=== PATIENT | female | born 1960 | race Caucasian/White ===

== ENCOUNTER → 2017-04-23 | Outpatient (CLI) | payer BC ==
[~2017-04-23] MED LIST: IBUP-1022 PO
--- NOTE | 2017-04-23 14:04 | REP ---
FOOT SERIES: Four views. HISTORY: Pain in the left foot. No injury or trauma known. FINDINGS: Four views of the left foot show overall normal mineralization. Joint spaces are preserved. No erosive change is seen. No fracture is noted. No stress injury is appreciated. IMPRESSION: Negative radiographs of the left foot. Signed by Davon Bello MD 04/23/2017 02:07 P
== END ==
LOC: M ADAMS 13:19
PROVIDERS: ATTEND Physician Assistant
DX: M79.672 Pain in left foot (principal)

== ENCOUNTER → 2017-09-10 | Outpatient (REF) | payer BC ==
[2017-09-10 13:17] LABS: BASO % 0.5 % (0.0-1.0); EOS # 0.1 10^3/uL (0.0-0.50); EOS % 1.5 % (0.0-3.0); IMMATURE GRANULOCYTE % 0.4 % (0-0); LYMPH # 1.5 10^3/uL (1.5-4.5); LYMPH % 27.9 % (24.0-44.0); MEAN CORPUSCULAR HEMOGLOBIN 33.2 pg (27.0-33.0); MEAN CORPUSCULAR HGB CONC 33.1 g/dl (32.0-36.5); MEAN CORPUSCULAR VOLUME 100.5 fl (80.0-96.0); MONO # 0.4 10^3/uL (0.0-0.8); MONO % 6.9 % (0.0-5.0); NEUTROPHILS # 3.5 10^3/uL (1.8-7.7); NEUTROPHILS % 62.8 % (36.0-66.0); PLATELET COUNT, AUTOMATED 144 10^3/uL (150-450); RED CELL DISTRIBUTION WIDTH 11.6 % (11.5-14.5); WHITE BLOOD COUNT 5.5 10^3/uL (4.0-10.0)
[2017-09-10 13:39] LABS: ALBUMIN 3.9 GM/DL (3.2-5.2); ALBUMIN/GLOBULIN RATIO 1.22 (1.00-1.93); ALKALINE PHOSPHATASE 60 U/L (45-117); ALT/SGPT 22 U/L (12-78); ANION GAP 6 MEQ/L (8-16); AST/SGOT 13 U/L (7-37); BILIRUBIN,TOTAL 0.6 MG/DL (0.2-1.0); BLOOD UREA NITROGEN 10 MG/DL (7-18); CALCIUM LEVEL 8.8 MG/DL (8.5-10.1); CARBON DIOXIDE LEVEL 32 MEQ/L (21-32); CHLORIDE LEVEL 102 MEQ/L (98-107); CREATININE FOR GFR 0.58 MG/DL (0.55-1.02); GLOMERULAR FILTRATION RATE > 60.0 (>51); GLUCOSE, FASTING 93 MG/DL (70-105); SODIUM LEVEL 140 MEQ/L (136-145); TOTAL PROTEIN 7.1 GM/DL (6.4-8.2)
== END ==
LOC: M LAB REF 12:04
PROVIDERS: ATTEND Physician Assistant
DX: R11.10 Vomiting, unspecified (principal)

== ENCOUNTER → 2019-03-15 | Outpatient (CLI) | payer BC ==
--- NOTE | 2019-03-16 06:49 | REP ---
Clinical: Cough . Comparison: None . Technique: PA and lateral. Findings: Severe chronic scoliosis appreciated along with osteopenia and degenerative changes. The lung donnelly suggest COPD/emphysematous disease with scattered scarring. No focal consolidation, definite effusion or pneumothorax. Impression: 1. COPD. No acute cardiopulmonary process. 2. Scoliosis and degenerative changes. Electronically Signed by Bradley Mary MD 03/16/2019 06:41 A
== END ==
LOC: M ADAMS 10:03
PROVIDERS: ATTEND Physician Assistant
DX: J44.9 Chronic obstructive pulmonary disease, unspecified (principal); M41.9 Scoliosis, unspecified; M85.88 Other specified disorders of bone density and structure, other site

== ENCOUNTER → 2020-01-02 | Outpatient (CLI) | payer BC ==
--- NOTE | 2020-01-02 14:57 | REP ---
Clinical: Acute bronchitis. Technique: PA and lateral. Comparison: 03/15/2019. Findings: Marked chronic scoliosis is unchanged. The cardiac silhouette is normal. Lung donnelly are clear. No consolidation, effusion, or pneumothorax. Impression: No acute consolidation or effusion. Electronically Signed by Bradley Mary MD 01/02/2020 02:49 P
== END ==
LOC: M ADAMS 14:23
PROVIDERS: ATTEND Physician Assistant
DX: J20.9 Acute bronchitis, unspecified (principal); Z72.0 Tobacco use; J45.901 Unspecified asthma with (acute) exacerbation

== ENCOUNTER → 2020-01-08 | Outpatient (CLI) | payer BC | LOC: M LABSMTC 10:30 | PROVIDERS: ATTEND Family Medicine | DX: Z11.59 Encounter for screening for other viral diseases (principal); Z20.828 Contact with and (suspected) exposure to other viral communicable diseases | CPT/HCPCS: 87502; U0002 ==

== ENCOUNTER → 2020-09-01 | Outpatient (CLI) | payer SELFPAY | LOC: M LABSMTC 11:46 | PROVIDERS: ATTEND Pediatrics | DX: Z20.828 Contact with and (suspected) exposure to other viral communicable diseases (principal) ==

== ENCOUNTER → 2020-12-14 | Outpatient (REF) | payer BC ==
[2020-12-14 12:55] LABS: BASO % 0.5 % (0.0-1.0); EOS % 0.8 % (0.0-3.0); HEMATOCRIT 42.5 % (36.0-47.0); HEMOGLOBIN 13.9 g/dl (12.0-15.5); MEAN CORPUSCULAR HEMOGLOBIN 33.1 pg (27.0-33.0); MEAN CORPUSCULAR HGB CONC 32.7 g/dl (32.0-36.5); MEAN CORPUSCULAR VOLUME 101.2 fl (80.0-96.0); MONO # 0.3 10^3/uL (0.0-0.8); MONO % 7.8 % (2.0-8.0); NEUTROPHILS # 2.4 10^3/uL (1.5-8.5); NEUTROPHILS % 63.6 % (36.0-66.0); PLATELET COUNT, AUTOMATED 120 10^3/uL (150-450); WHITE BLOOD COUNT 3.7 10^3/uL (4.0-10.0)
[2020-12-14 14:48] LABS: ALBUMIN 3.9 GM/DL (3.2-5.2); ALT/SGPT 16 U/L (12-78); BILIRUBIN,TOTAL 0.5 MG/DL (0.2-1.0); BLOOD UREA NITROGEN 11 MG/DL (7-18); CARBON DIOXIDE LEVEL 32 MEQ/L (21-32); CHLORIDE LEVEL 106 MEQ/L (98-107); CHOLESTEROL LEVEL 149 MG/DL (<200); CHOLESTEROL RISK RATIO 2.098 (<5); CREATININE FOR GFR 0.57 MG/DL (0.55-1.30); GLOMERULAR FILTRATION RATE > 60.0 (>51); GLUCOSE, FASTING 76 MG/DL (70-100); HDL CHOLESTEROL 71 MG/DL (>40); LDL CHOLESTEROL 65 MG/DL (<100); NON-HDL-C 78 MG/DL; POTASSIUM SERUM 4.2 MEQ/L (3.5-5.1); SODIUM LEVEL 140 MEQ/L (136-145); TOTAL PROTEIN 6.9 GM/DL (6.4-8.2); TRIGLYCERIDES LEVEL 65 MG/DL (<150)
== END ==
LOC: M SFHCADAM 11:04
PROVIDERS: ATTEND Physician Assistant Medical
DX: F17.210 Nicotine dependence, cigarettes, uncomplicated (principal); Z13.220 Encounter for screening for lipoid disorders; Z13.0 Encounter for screening for diseases of the blood and blood-forming organs and certain disorders involving the immune mechanism

== ENCOUNTER → 2020-12-22 | Outpatient (CLI) | payer BC ==
--- NOTE | 2020-12-22 12:43 | REP ---
INDICATION: PAIN IN RIGHT KNEE COMPARISON: None. TECHNIQUE: AP, lateral, bilateral oblique and sunrise views. FINDINGS: Mild generalized osteopenia and mild degenerative changes including subchondral sclerosis and minimal joint space narrowing noted. No acute fracture or dislocation. No obvious effusion. IMPRESSION: Mild degenerative changes. <Electronically signed by Bradley Mary > 12/22/20 [id number]
== END ==
LOC: M ADAMS 11:51
PROVIDERS: ATTEND Physician Assistant Medical
DX: M25.561 Pain in right knee (principal)

== ENCOUNTER → 2020-12-22 | Outpatient (REF) | payer BC ==
[2020-12-22 16:19] LABS: HEMATOCRIT 41.7 % (36.0-47.0); HEMOGLOBIN 13.6 g/dl (12.0-15.5); MEAN CORPUSCULAR HEMOGLOBIN 33.8 pg (27.0-33.0); MEAN CORPUSCULAR HGB CONC 32.6 g/dl (32.0-36.5); MEAN CORPUSCULAR VOLUME 103.7 fl (80.0-96.0); PLATELET COUNT, AUTOMATED 113 10^3/uL (150-450); RED BLOOD COUNT 4.02 10^6/uL (4.00-5.40); WHITE BLOOD COUNT 4.7 10^3/uL (4.0-10.0)
[2020-12-22 16:47] LABS: ERYTHROCYTE SEDIMENTATION RATE 11 mm/hr (0-30)
[2020-12-22 16:52] LABS: C REACTIVE PROTEIN QUANTITATIV 1.02 MG/DL (0.00-0.30)
[2020-12-25 18:12] LABS: Lyme Disease IgG/IgM Antibodie <0.91 ISR (0.00-0.90); Lyme Disease IgM Ab Quantitati <0.80 index (0.00-0.79)
== END ==
LOC: M SFHCADAM 11:50
PROVIDERS: ATTEND Physician Assistant Medical
DX: M25.561 Pain in right knee (principal)

== ENCOUNTER → 2020-12-27 | Outpatient (CLI) | payer BC ==
--- NOTE | 2020-12-27 08:34 | PFTRPT ---
Site: [facility], [address] [place] [address], [id number] ID: [id number] Name: KATTY MIRANDA Visit Date: 12/27/2020 Second ID: [id number] Referring Doctor: Marybel Sweeney PA-C Reviewing Doctor: German Tijerina MD Physical Metallurgist: Andrea PINO RRT Age: 60 : 1960 Sex: Female Race: Height: 62.50 Inches Weight: 96.00 Lbs BSA: 1.41 Order IDs: [id number] Requested Test(s): <RESP-PFT.PFT B/A> Diagnosis: J44.9 test meet the ATS standards for acceptability and repeatability. Pt was given four puffs of albuterol for post bronchodilator. Review Status: Not Reviewed Pre-Bronch Post-Bronch Pred Actual %Pred Actual %Chng SPIROMETRY FVC (L) 3.18 1.48 46 1.63 9 FEV1 (L) 2.47 0.74 29 0.83 13 FEV1/FVC (%) 78 50 63 51 3 FEF 25% (L/sec) 4.87 0.78 15 0.91 17 FEF 50% (L/sec) 3.69 0.35 9 0.45 27 FEF 75% (L/sec) 1.26 0.16 12 0.21 34 FEF 25-75% (L/sec) 2.35 0.30 12 0.39 29 FEF Max (L/sec) 6.17 1.58 25 2.12 34 FIVC (L) 1.52 1.67 10 FIF 50% (L/sec) 3.13 1.99 63 2.58 29 FIF Max (L/sec) 2.13 2.59 21 MVV (L/min) 90 22 24 Expiratory Time (sec) 8.55 7.63 -10 Back Extrap Vol (L) 0.02 0.02 -8 Time To FEFmax (sec) 0.072 0.070 -2 LUNG VOLUMES SVC (L) 2.96 1.58 53 IC (L) 2.12 1.04 49 ERV (L) 0.84 0.54 64 TGV (L) 2.71 3.98 146 RV (Pleth) (L) 1.87 3.44 183 TLC (Pleth) (L) 4.83 5.02 103 RV/TLC (Pleth) (%) 38 69 180 DIFFUSION DLCOunc (ml/min/mmHg) 21.24 7.87 37 DL/VA (ml/min/mmHg/L) 4.40 2.67 60 VA (L) 4.83 2.94 60 BHT (sec) 10.64 IVC (L) 1.02 TLC (SB) (L) 3.09 AIRWAYS RESISTANCE Raw (cmH2O/L/s) 1.86 2.25 121 Gaw (L/s/cmH2O) 1.03 0.45 43 sRaw (cmH2O*s) 4.76 8.32 174 sGaw (1/cmH2O*s) 0.20 0.12 60
== END ==
LOC: M CARPUL 08:05
PROVIDERS: ATTEND Physician Assistant Medical
DX: J44.9 Chronic obstructive pulmonary disease, unspecified (principal)

== ENCOUNTER → 2021-01-12 | Outpatient (CLI) | payer BC ==
--- NOTE | 2021-01-12 16:38 | REP ---
INDICATION: Claudication. COMPARISON: None. TECHNIQUE: Real time jordan scale and Duplex Doppler evaluation of the bilateral lower extremity arterial vasculature using linear high frequency transducer. FINDINGS: Jordan scale and duplex doppler images demonstrate mild amounts of atheromatous plaquing. There is elevated velocity of the right profunda artery, but there is no visual stenosis, therefore the velocity is likely falsely elevated. There is no compelling duplex Doppler sonographic evidence of significant stenosis of the bilateral arterial structures. There is no occlusion. Doppler interrogation demonstrates normal arterial wave forms bilaterally. PREETHI right 1.0 and left 1.1. Peak systolic velocities (cm/sec) Common femoral artery: Right 102; Left 96 Profunda femoris: Right 325; Left 97 SFA (proximal): Right 143; Left 111 SFA (mid): Right 138; Left 162 SFA (distal): Right 109; Left 144 Popliteal artery: Right 81; Left 72 ISAIAH (prox.): Right 62; Left 76 Tibioperoneal trunk: Right 48; Left 43 DATA COLLECTION TECHNICIAN (prox.): Right 37; Left 53 DATA COLLECTION TECHNICIAN (distal): Right 55; Left 43 ISAIAH (distal): Right 68; Left 45 IMPRESSION: Atheromatous changes but no focal occlusion or stenosis. Elevated flow velocity in the right profunda artery is likely artifactual. <Electronically signed by Guzman Jordan > 01/12/21 [id number]
== END ==
LOC: M RAD 14:39
PROVIDERS: ATTEND Physician Assistant
DX: I70.91 Generalized atherosclerosis (principal)

== ENCOUNTER → 2021-02-02 | Outpatient (CLI) | payer BC ==
--- NOTE | 2021-02-02 10:06 | DEXAMM ---
INDICATION: M41.25 IDIOPATHIC SCOLIOSIS. COMPARISON: None. TECHNIQUE: Bone density was measured using dual-energy x-ray absorptionmetry (DEXA). FINDINGS: AP SPINE L1-L4 BMD 0.622 g/cm2 Young Adult T-Score -4.6 Age Matched Z-Score is -3.6. LT FEMUR, TOTAL BMD 0.57 to g/cm2 Young Adult T-Score -3.5 Age Matched Z-Score -2.6. LT NECK BMD 0.598 g/cm2 Young Adult T-Score -3.2 Age Matched Z-Score 2-2.0. RT FEMUR, TOTAL BMD 0.535 g/cm2 Young Adult T-Score -3.7 Age Matched Z-Score -2.9. RT NECK BMD 0.580 g/cm2 Young Adult T-Score -3.3 Age Matched Z-Score -2.2. IMPRESSION: There is osteoporosis of the spine. There is osteoporosis of the left hip. There is osteoporosis of the right hip. There is a levoconvex scoliosis in the lumbar spine. FOLLOW-UP: Recommendation for the next bone density exam: 2 years. <Electronically signed by Henri Bello > 02/02/21 1002
== END ==
LOC: M WHC 09:01
PROVIDERS: ATTEND Physician Assistant Medical
DX: M41.25 Other idiopathic scoliosis, thoracolumbar region (principal); M81.0 Age-related osteoporosis without current pathological fracture

== ENCOUNTER → 2021-08-01 | Outpatient (CLI) | payer OTHER ==
--- NOTE | 2021-08-01 10:48 | REPMRS ---
Patient History The patient states she had a clinical breast exam in July 2021. Patient is postmenopausal. Family history of breast cancer at age 50 or over in maternal aunt, breast cancer at age 50 or over in maternal grandmother, breast cancer at age 50 or over in mother, colorectal cancer under age 50 in maternal grandfather. Took hormonal contraceptives for 20 years. Patient states no breast complaints today. Patient has signed MRS History Sheet. Digital Woman Screen Mammo: August 01, 2021 - Exam #: [id number] Bilateral CC and MLO view(s) were taken. Technologist: Tiffanie Jha, Technologist FINDINGS: The breast tissue is extremely dense which could obscure a lesion on mammography. Screening. Digital screening (2D) mammography was performed bilaterally. Additionally, breast tomosynthesis (3D) mammography was perfomed bilaterally in the CC and MLO projections. Today's examination is the initial screening examination. By history, the patient has no complaints of a palpable breast abnormality or other significant breast complaints. The breasts are symmetric in size and shape.Dense heterogenous fibroglandular elements are seen bilaterally to such a degree that the sensitivity of the mammogram in detecting cancer is decreased. There are no masses. There is no internal architectural distortion. Benign appearing calcifications are seen. There are no suspicious microcalcific clusters. Skin thickening or nipple retraction is not present. IMPRESSION: BI-RADS Category 2- Benign Findings. There is no evidence of malignant alteration of the breasts. Followup examination recommended in one year. The Volpara volumetric breast density category is D, the breasts are extremely dense which lowers the sensitivity of mammography. This mammogram was read with the assistance of [employer],an FDA approved computer aided detection system for mammography. The lifetime Tyrer-Cuzick score is 13.4 % Due to the density of the breasts or Tyrer Cuzick score of 20% or greater, MRI/whole breast screening ultrasound is warranted. Negative x-ray reports should not delay surgical consultation if a dominant or clinically suspicious mass is present. Not all breast cancers can be identified by mammography. Therefore, we recommend that you continue to perform regular breast self-examination and physical examination and then promptly contact your physician of any concerns or changes. Adenosis and dense breasts may obscure an underlying neoplasm. Assessment: BI-RADS/ACR category 2 mammogram. Benign Findings. Recommendation Routine screening mammogram of both breasts in 1 year. Electronically Signed By: Justin Ornelas DO 08/01/21 0381
== END ==
LOC: M WHC 09:35
PROVIDERS: ATTEND Physician Assistant Medical
DX: Z12.31 Encounter for screening mammogram for malignant neoplasm of breast (principal)

== ENCOUNTER → 2021-08-09 | Outpatient (REF) | payer BC, MEDICAID | LOC: M SFHCADAM 15:17 | PROVIDERS: ATTEND Physician Assistant Medical | DX: R05.9 Cough, unspecified (principal) ==

== ENCOUNTER → 2021-09-05 | Outpatient (REF) | payer MEDICAID, BC | LOC: M SFHCADAM 13:11 | PROVIDERS: ATTEND Physician Assistant | DX: R09.81 Nasal congestion (principal) ==

== ENCOUNTER → 2021-09-20 | Outpatient (REF) | payer OTHER | LOC: M SFHCADAM 11:37 | PROVIDERS: ATTEND Physician Assistant Medical | DX: E55.9 Vitamin D deficiency, unspecified (principal) ==

== ENCOUNTER → 2022-02-13 | Outpatient (CLI) | payer OTHER ==
[~2022-02-13] MED LIST changes: +ALEN70TA82 PO; +BREO1INH INH; +CHLO125TA PO; +MELO15TA28 PO; +VITA200016 PO
== END ==
LOC: M LABSMTC 09:16
PROVIDERS: ATTEND Anesthesiology
DX: Z01.812 Encounter for preprocedural laboratory examination (principal); Z20.822 Contact with and (suspected) exposure to COVID-19

== ENCOUNTER → 2022-05-19 | Outpatient (CLI) | payer OTHER | LOC: M LABSMTC 09:34 | PROVIDERS: ATTEND Anesthesiology | DX: Z20.828 Contact with and (suspected) exposure to other viral communicable diseases (principal); Z11.59 Encounter for screening for other viral diseases ==

== ENCOUNTER 2022-05-22 06:48 | Day surgery (SDC) | payer OTHER ==
[~2022-05-22] VITALS: Ht 160 cm; Wt 42.8 kg
[~2022-05-22 06:48] MED LIST changes: +LIDOCAINE 2% 100MG/5ML SDV (FOR ANES.) As Ordered ONE; +NS 1,000 ML IV ONE; +propofoL 200 MG/20 ML VIAL As Ordered ONE
[2022-05-22 08:16] VITALS: BP 116/69
== END 2022-05-22 08:22 | disposition home or self-care (01) ==
LOC: M OPP 06:48
PROVIDERS: ATTEND Internal Medicine Gastroenterology
DX: R19.5 Other fecal abnormalities (principal); K63.5 Polyp of colon; K64.0 First degree hemorrhoids; K57.30 Diverticulosis of large intestine without perforation or abscess without bleeding; I10 Essential (primary) hypertension; M41.9 Scoliosis, unspecified; M19.90 Unspecified osteoarthritis, unspecified site; M81.0 Age-related osteoporosis without current pathological fracture; F32.A Depression, unspecified; J44.9 Chronic obstructive pulmonary disease, unspecified; F17.210 Nicotine dependence, cigarettes, uncomplicated; Z79.51 Long term (current) use of inhaled steroids; Z79.899 Other long term (current) drug therapy

== ENCOUNTER → 2022-08-06 | Outpatient (CLI) | payer OTHER ==
[~2022-08-06] MED LIST changes: -LIDOCAINE 2% 100MG/5ML SDV (FOR ANES.) As Ordered ONE; -NS 1,000 ML IV ONE; -propofoL 200 MG/20 ML VIAL As Ordered ONE
[2022-08-06 10:50] LABS: BASO # 0.1 10^3/uL (0.0-0.2); BASO % 0.8 % (0.0-1.0); EOS # 0.1 10^3/uL (0.0-0.5); HEMATOCRIT 43.6 % (36.0-47.0); HEMOGLOBIN 14.4 g/dl (12.0-15.5); LYMPH # 1.6 10^3/uL (1.5-5.0); LYMPH % 25.1 % (24.0-44.0); MEAN CORPUSCULAR HEMOGLOBIN 32.1 pg (27.0-33.0); MEAN CORPUSCULAR VOLUME 97.1 fl (80.0-96.0); MONO # 0.5 10^3/uL (0.0-0.8); MONO % 7.2 % (2.0-8.0); NEUTROPHILS # 4.1 10^3/uL (1.5-8.5); NEUTROPHILS % 65.6 % (36.0-66.0); PLATELET COUNT, AUTOMATED 176 10^3/uL (150-450); RED BLOOD COUNT 4.49 10^6/uL (4.00-5.40); WHITE BLOOD COUNT 6.2 10^3/uL (4.0-10.0)
[2022-08-06 11:54] LABS: ALBUMIN 4.1 GM/DL (3.2-5.2); ALT/SGPT 16 U/L (12-78); BILIRUBIN,TOTAL 0.7 MG/DL (0.2-1.0); BLOOD UREA NITROGEN 20 MG/DL (7-18); CALCIUM LEVEL 9.5 MG/DL (8.5-10.1); CARBON DIOXIDE LEVEL 38 MEQ/L (21-32); CHLORIDE LEVEL 95 MEQ/L (98-107); CHOLESTEROL LEVEL 202 MG/DL (<200); CREATININE FOR GFR 0.61 MG/DL (0.55-1.30); GLOMERULAR FILTRATION RATE > 60.0 (>51); GLUCOSE, FASTING 115 MG/DL (70-100); HDL CHOLESTEROL 68 MG/DL (>40); LDL CHOLESTEROL 116 MG/DL (<100); NON-HDL-C 134 MG/DL; SODIUM LEVEL 138 MEQ/L (136-145); TOTAL PROTEIN 7.6 GM/DL (6.4-8.2); TRIGLYCERIDES LEVEL 89 MG/DL (<150)
[2022-08-06 13:06] LABS: POTASSIUM SERUM 2.9 MEQ/L (3.5-5.1); TOTAL 25(OH) VITAMIN D 54.6 NG/ML (30.0-100.0)
== END ==
LOC: M PLALAB 08:15
PROVIDERS: ATTEND Physician Assistant Medical
DX: E55.9 Vitamin D deficiency, unspecified (principal); I10 Essential (primary) hypertension; J43.1 Panlobular emphysema

== ENCOUNTER → 2022-08-06 | Outpatient (CLI) | payer OTHER | LOC: M WHC 07:33 | PROVIDERS: ATTEND Physician Assistant Medical | DX: Z12.31 Encounter for screening mammogram for malignant neoplasm of breast (principal) ==

== ENCOUNTER → 2022-08-12 | Outpatient (CLI) | payer OTHER ==
[2022-08-12 11:25] LABS: BLOOD UREA NITROGEN 14 MG/DL (7-18); CALCIUM LEVEL 9.3 MG/DL (8.5-10.1); CARBON DIOXIDE LEVEL 34 MEQ/L (21-32); CHLORIDE LEVEL 98 MEQ/L (98-107); CREATININE FOR GFR 0.64 MG/DL (0.55-1.30); GLOMERULAR FILTRATION RATE > 60.0 (>51); GLUCOSE, FASTING 122 MG/DL (70-100); POTASSIUM SERUM 3.5 MEQ/L (3.5-5.1); SODIUM LEVEL 136 MEQ/L (136-145)
== END ==
LOC: M PLALAB 08:01
PROVIDERS: ATTEND Physician Assistant Medical
DX: E87.6 Hypokalemia (principal)

== ENCOUNTER → 2023-01-14 | Outpatient (CLI) | payer OTHER ==
[2023-01-14 12:11] LABS: ALKALINE PHOSPHATASE 51 U/L (46-116); ALT/SGPT < 9 U/L (7.0-40); AST/SGOT 15 U/L (<34); BILIRUBIN,TOTAL 0.6 MG/DL (0.3-1.2); BLOOD UREA NITROGEN 22 MG/DL (9-23); CALCIUM LEVEL 9.5 MG/DL (8.3-10.6); CARBON DIOXIDE LEVEL 36 MMOL/L (20-31); CHLORIDE LEVEL 95 MMOL/L (98-107); CHOLESTEROL LEVEL 185 MG/DL (<200); CHOLESTEROL RISK RATIO 2.83 (<5); GLOMERULAR FILTRATION RATE > 60.0 (>45); GLUCOSE, FASTING 91 MG/DL (74-106); HDL CHOLESTEROL 65.2 MG/DL (>40); LDL CHOLESTEROL 103.4 MG/DL (<100); NON-HDL-C 119.8 MG/DL; SODIUM LEVEL 137 MMOL/L (136-145); TOTAL PROTEIN 6.9 G/DL (5.7-8.2); TRIGLYCERIDES LEVEL 82 MG/DL (<150)
[2023-01-14 12:13] LABS: THYROID STIMULATING HORMONE 2.167 uIU/ML (0.55-4.78); TOTAL 25(OH) VITAMIN D 53.3 NG/ML (20.0-100.0)
[2023-01-14 12:49] LABS: HEMOGLOBIN A1c 5.4 % (4.0-6.0)
== END ==
LOC: M PLALAB 09:05
PROVIDERS: ATTEND Physician Assistant Medical
DX: I10 Essential (primary) hypertension (principal)

== ENCOUNTER → 2023-01-14 | Outpatient (CLI) | payer OTHER | LOC: M WHC 08:34 | PROVIDERS: ATTEND Physician Assistant Medical | DX: M81.0 Age-related osteoporosis without current pathological fracture (principal) ==

== ENCOUNTER → 2023-02-20 | Outpatient (REF) | payer OTHER | LOC: M SFHCADAM 12:33 | PROVIDERS: ATTEND Physician Assistant Medical | DX: Z12.4 Encounter for screening for malignant neoplasm of cervix (principal); R87.610 Atypical squamous cells of undetermined significance on cytologic smear of cervix (ASC-US) ==

== ENCOUNTER → 2023-05-09 | Outpatient (CLI) | payer OTHER | LOC: M ADAMS 10:06 | PROVIDERS: ATTEND Physician Assistant | DX: F17.210 Nicotine dependence, cigarettes, uncomplicated (principal); M41.9 Scoliosis, unspecified ==

== ENCOUNTER → 2023-05-21 | Outpatient (CLI) | payer OTHER | LOC: M RAD 15:50 | PROVIDERS: ATTEND Physician Assistant | DX: F17.210 Nicotine dependence, cigarettes, uncomplicated (principal); R22.31 Localized swelling, mass and lump, right upper limb ==

== ENCOUNTER → 2023-06-03 | Outpatient (CLI) | payer OTHER | LOC: M WHC 10:07 | PROVIDERS: ATTEND Physician Assistant | DX: F17.210 Nicotine dependence, cigarettes, uncomplicated (principal); R22.31 Localized swelling, mass and lump, right upper limb ==

== ENCOUNTER 2023-11-21 15:29 | Inpatient (IN) | payer OTHER ==
[~2023-11-21] VITALS: Ht 160 cm; Wt 41.1 kg
[2023-11-21] MEDS: NS 500 ML IV ONE (16:10)
[2023-11-21 16:59] LABS: BASO % 0.1 % (0.0-1.0); EOS % 0.1 % (0.0-3.0); HEMATOCRIT 40.1 % (36.0-47.0); HEMOGLOBIN 13.9 g/dl (12.0-15.5); LYMPH # 0.6 10^3/uL (1.5-5.0); LYMPH % 4.1 % (24.0-44.0); MEAN CORPUSCULAR HEMOGLOBIN 34.3 pg (27.0-33.0); MEAN CORPUSCULAR HGB CONC 34.7 g/dl (32.0-36.5); MONO # 0.6 10^3/uL (0.0-0.8); MONO % 4.5 % (2.0-8.0); NEUTROPHILS # 12.6 10^3/uL (1.5-8.5); NEUTROPHILS % 90.7 % (36.0-66.0); PLATELET COUNT, AUTOMATED 108 10^3/uL (150-450); RED BLOOD COUNT 4.05 10^6/uL (4.00-5.40); WHITE BLOOD COUNT 13.9 10^3/uL (4.0-10.0)
[2023-11-21 17:10] LABS: ALBUMIN 3.5 G/DL (3.2-5.2); ALKALINE PHOSPHATASE 45 U/L (46-116); ALT/SGPT 12 U/L (7.0-40); AST/SGOT 18 U/L (<34); BILIRUBIN,DIRECT 0.3 MG/DL (<0.4); BILIRUBIN,TOTAL 0.7 MG/DL (0.3-1.2); BLOOD UREA NITROGEN 30 MG/DL (9-23); CALCIUM LEVEL 8.4 MG/DL (8.3-10.6); CARBON DIOXIDE LEVEL 30 MMOL/L (20-31); CHLORIDE LEVEL 96 MMOL/L (98-107); CREATININE FOR GFR 0.82 MG/DL (0.55-1.30); GLOMERULAR FILTRATION RATE > 60.0 (>45); GLUCOSE, FASTING 93 MG/DL (74-106); MAGNESIUM LEVEL 1.6 MG/DL (1.8-2.4); POTASSIUM SERUM 3.2 MMOL/L (3.5-5.1); SODIUM LEVEL 133 MMOL/L (136-145); TOTAL PROTEIN 6.6 G/DL (5.7-8.2)
[2023-11-21 17:18] LABS: RSV AMPLIFICATION NEGATIVE (NEGATIVE)
[2023-11-21] MEDS ORDERED: MOM 30ML SUSPENSION UDC PO PRN (18:20)
[2023-11-21] MEDS: ACETAMINOPHEN TAB 650MG DOSE (2X325MG) PO PRN (18:55)
[2023-11-21] MEDS: MAG SULF 1GM/100ML (MAG RUN) 1 GM in IV 1 EA IV ONE (18:55)
[2023-11-21] MEDS: POTASSIUM CHLORIDE 10MEQ SR TABLET PO ONE (18:55)
[2023-11-21] MEDS: dexAMETHasone 20MG/5ML VIAL IV ONE (18:58)
[2023-11-21 19:14] LABS: PROCALCITONIN 3.29 ng/ml
[2023-11-21] MEDS ORDERED: POTA-298 PO (19:20)
[2023-11-21] MEDS ORDERED: HOME MED LIST COMPLETE! XX SCH (19:25)
[2023-11-21] MEDS: IPRATROPIUM 0.5MG/ALBUTEROL 2.5MG INH SOL UD 3ML (DUONEB) INH SCH (19:47)
[2023-11-21] MEDS: cefTRIAXone SOD 1 GM in D5W MINI-BAG PLUS 50 ML IV ONE (20:03)
[2023-11-21] MEDS ORDERED: REMDESIVIR 200 MG in NS 250 ML IV ONE (21:00)
[2023-11-21] MEDS: DOCUSATE SODIUM 100MG CAPSULE PO SCH (21:21)
[2023-11-21] MEDS: AZITHROMYCIN INJ 500 MG, VIAL MATE ADAPTER 1 EACH in NS 250 ML IV ONE (21:21)
[2023-11-21] MEDS: NICOTINE 21MG/24HR 1 EA TRANSDERMAL TD SCH (21:22)
[2023-11-21] MEDS: NS 1,000 ML IV ONE (22:00)
[2023-11-21] MEDS: ADVAIR HFA 115/21MCG INHALER INH SCH (22:05)
[2023-11-21 22:35] LABS: INR 1.11; PARTIAL THROMBOPLASTIN TIME 31.4 SECONDS (24.8-34.2)
[2023-11-22] VITALS (55 sets, daily range): BP systolic 75–115; BP diastolic 47–67; TEMP 97.5–98.6; O2SAT 83–100
[2023-11-22] MEDS: NS 1,000 ML IV ONE ×2 (00:45→08:35)
[2023-11-22] MEDS: NS 500 ML IV ONE (02:02)
[2023-11-22 04:49] LABS: HEMATOCRIT 36.1 % (36.0-47.0); HEMOGLOBIN 12.2 g/dl (12.0-15.5); MEAN CORPUSCULAR HEMOGLOBIN 33.9 pg (27.0-33.0); MEAN CORPUSCULAR HGB CONC 33.8 g/dl (32.0-36.5); MEAN CORPUSCULAR VOLUME 100.3 fl (80.0-96.0); WHITE BLOOD COUNT 11.5 10^3/uL (4.0-10.0)
[2023-11-22 05:17] LABS: BLOOD UREA NITROGEN 23 MG/DL (9-23); CALCIUM LEVEL 6.8 MG/DL (8.3-10.6); CARBON DIOXIDE LEVEL 27 MMOL/L (20-31); CHLORIDE LEVEL 107 MMOL/L (98-107); CREATININE FOR GFR 0.49 MG/DL (0.55-1.30); GLOMERULAR FILTRATION RATE > 60.0 (>45); GLUCOSE, FASTING 128 MG/DL (74-106); POTASSIUM SERUM 3.3 MMOL/L (3.5-5.1); SODIUM LEVEL 138 MMOL/L (136-145)
[2023-11-22 05:45] LABS: PLATELET COUNT, AUTOMATED 91 10^3/uL (150-450)
[2023-11-22] MEDS: NOREPINEPHRINE 4MG IN D5 250ML 4 MG in IV 1 EA IV SCH (06:02)
[2023-11-22] MEDS: POTASSIUM CHLORIDE 10% LIQ 20MEQ/15ML UDC PO ONE (06:38)
[2023-11-22] MEDS ORDERED: PILL CUTTER 1 EACH XX PRN (08:30)
[2023-11-22] MEDS ORDERED: PILL CUTTER 1 EACH XX ONE (08:30)
[2023-11-22] MEDS: AZITHROMYCIN 250MG TABLET PO SCH (08:36)
[2023-11-22] MEDS: dexAMETHasone 4 MG TAB PO SCH (08:38)
[2023-11-22] MEDS ORDERED: RIVAROXABAN 10MG TAB (XARELTO) PO SCH (09:00)
[2023-11-22] MEDS ORDERED: HEPARIN SOD (PORCINE) 5000UNITS/ML 1ML VIAL/SYRINGE SQ SCH (14:00)
[2023-11-22] MEDS: LR 1,000 ML IV SCH (15:01)
[2023-11-22] MEDS: RIVAROXABAN 10MG TAB (XARELTO) PO SCH (18:00)
[2023-11-22] MEDS: cefTRIAXone SOD 1 GM in D5W MINI-BAG PLUS 50 ML IV SCH (18:27)
[2023-11-23] VITALS (13 sets, daily range): BP systolic 101–114; BP diastolic 57–60; TEMP 98.2–98.8; O2SAT 84–96
[2023-11-23 06:07] LABS: HEMATOCRIT 32.2 % (36.0-47.0); MEAN CORPUSCULAR HEMOGLOBIN 33.6 pg (27.0-33.0); MEAN CORPUSCULAR HGB CONC 34.2 g/dl (32.0-36.5); MEAN CORPUSCULAR VOLUME 98.5 fl (80.0-96.0); PLATELET COUNT, AUTOMATED 94 10^3/uL (150-450); RED BLOOD COUNT 3.27 10^6/uL (4.00-5.40); WHITE BLOOD COUNT 12.4 10^3/uL (4.0-10.0)
[2023-11-23 06:39] LABS: BLOOD UREA NITROGEN 13 MG/DL (9-23); CALCIUM LEVEL 7.4 MG/DL (8.3-10.6); CARBON DIOXIDE LEVEL 29 MMOL/L (20-31); CHLORIDE LEVEL 103 MMOL/L (98-107); CREATININE FOR GFR 0.42 MG/DL (0.55-1.30); GLOMERULAR FILTRATION RATE > 60.0 (>45); GLUCOSE, FASTING 131 MG/DL (74-106); POTASSIUM SERUM 2.7 MMOL/L (3.5-5.1); SODIUM LEVEL 138 MMOL/L (136-145)
[2023-11-23] MEDS ORDERED: KCL 10MEQ/100ML SWI (KRUN) 10 MEQ in IV 1 EA IV SCH (08:00)
[2023-11-23] MEDS ORDERED: DOXYCYCLINE HYCLATE 100MG TABLET PO SCH (09:00)
[2023-11-23] MEDS: KCL 10MEQ/100ML SWI (KRUN) 10 MEQ in IV 1 EA IV SCH (09:07)
[2023-11-23] MEDS: CLINDAMYCIN 150MG CAPSULE PO SCH (09:08)
[2023-11-23] MEDS: POTASSIUM CHLORIDE 10MEQ SR TABLET PO ONE (09:10)
[2023-11-23] MEDS: LACTOBACILLUS ACIDOPHILUS CAP (BACID) PO SCH (09:10)
[2023-11-23] MEDS: AUGMENTIN 875 MG TAB PO SCH (09:10)
[2023-11-23] MEDS ORDERED: POTA-150 PO (10:58)
[2023-11-23] MEDS ORDERED: RISATAB3 PO (10:58)
[2023-11-23] MEDS ORDERED: CLIN150C17 PO (10:58)
[2023-11-23] MEDS ORDERED: AMOX875T2 PO (10:58)
[2023-11-23] MEDS ORDERED: DEXA6TAB PO (10:58)
[2023-11-23] MEDS ORDERED: NICO21PAT TD (13:46)
== END 2023-11-23 17:00 | disposition home or self-care (01) | DRG 137 ==
LOC: M ED 15:29 → M ED INP 20:21 → UNDOADMIN 20:21 → M ED INP 21:57 → CANRESERV 22:02 → ENRESERV 22:02 → M ICU 11-22 00:02 → M MSPAV 11-22 12:52
PROVIDERS: ADMIT Student in an Organized Health Care Education/Training Program; ATTEND Student in an Organized Health Care Education/Training Program
DX: U07.1 COVID-19 (principal); J12.82 Pneumonia due to coronavirus disease 2019; J96.11 Chronic respiratory failure with hypoxia; I95.9 Hypotension, unspecified; D69.6 Thrombocytopenia, unspecified; E87.1 Hypo-osmolality and hyponatremia; E83.42 Hypomagnesemia; I10 Essential (primary) hypertension; J44.9 Chronic obstructive pulmonary disease, unspecified; E87.6 Hypokalemia; M81.0 Age-related osteoporosis without current pathological fracture; Z79.899 Other long term (current) drug therapy; F17.200 Nicotine dependence, unspecified, uncomplicated

== ENCOUNTER → 2023-11-28 | Outpatient (REF) | payer MEDICARE ==
[~2023-11-28] MED LIST changes: +AMOX875T2 PO; +CLIN150C17 PO; +DEXA6TAB PO; +NICO21PAT TD; +POTA-150 PO; +POTA-298 PO; +RISATAB3 PO
[2023-11-28 16:58] LABS: BLOOD UREA NITROGEN 17 MG/DL (9-23); CALCIUM LEVEL 8.7 MG/DL (8.3-10.6); CARBON DIOXIDE LEVEL 34 MMOL/L (20-31); CHLORIDE LEVEL 99 MMOL/L (98-107); CREATININE FOR GFR 0.47 MG/DL (0.55-1.30); GLOMERULAR FILTRATION RATE > 60.0 (>45); GLUCOSE, FASTING 109 MG/DL (74-106); MAGNESIUM LEVEL 1.8 MG/DL (1.8-2.4); POTASSIUM SERUM 4.1 MMOL/L (3.5-5.1); SODIUM LEVEL 136 MMOL/L (136-145)
== END ==
LOC: M SFHCADAM 13:51
PROVIDERS: ATTEND Family Medicine
DX: R60.0 Localized edema (principal); E87.6 Hypokalemia; R06.02 Shortness of breath

== ENCOUNTER → 2023-12-19 | Outpatient (REF) | payer MEDICARE ==
[2023-12-19 14:46] LABS: BLOOD UREA NITROGEN 21 MG/DL (9-23); CALCIUM LEVEL 9.1 MG/DL (8.3-10.6); CARBON DIOXIDE LEVEL 33 MMOL/L (20-31); CHLORIDE LEVEL 98 MMOL/L (98-107); CREATININE FOR GFR 0.63 MG/DL (0.55-1.30); GLOMERULAR FILTRATION RATE > 60.0 (>45); GLUCOSE, FASTING 99 MG/DL (74-106); POTASSIUM SERUM 3.7 MMOL/L (3.5-5.1); SODIUM LEVEL 135 MMOL/L (136-145)
== END ==
LOC: M SFHCADAM 09:57
PROVIDERS: ATTEND Physician Assistant
DX: E87.6 Hypokalemia (principal)

== ENCOUNTER → 2024-01-01 | Outpatient (REF) | payer MEDICARE, MEDICAID ==
[2024-01-01 13:42] LABS: BASO % 0.8 % (0.0-1.0); EOS % 0.4 % (0.0-3.0); HEMATOCRIT 35.8 % (36.0-47.0); HEMOGLOBIN 11.7 g/dl (12.0-15.5); LYMPH # 1.2 10^3/uL (1.5-5.0); LYMPH % 24.9 % (24.0-44.0); MEAN CORPUSCULAR HEMOGLOBIN 33.1 pg (27.0-33.0); MEAN CORPUSCULAR HGB CONC 32.7 g/dl (32.0-36.5); MEAN CORPUSCULAR VOLUME 101.1 fl (80.0-96.0); MONO # 0.5 10^3/uL (0.0-0.8); MONO % 10.1 % (2.0-8.0); NEUTROPHILS % 63.4 % (36.0-66.0); PLATELET COUNT, AUTOMATED 217 10^3/uL (150-450); RED BLOOD COUNT 3.54 10^6/uL (4.00-5.40); WHITE BLOOD COUNT 4.8 10^3/uL (4.0-10.0)
[2024-01-01 14:14] LABS: ALBUMIN 3.9 G/DL (3.2-5.2); ALKALINE PHOSPHATASE 50 U/L (46-116); ALT/SGPT 14 U/L (7.0-40); AST/SGOT 12 U/L (<34); BILIRUBIN,TOTAL 0.4 MG/DL (0.3-1.2); BLOOD UREA NITROGEN 22 MG/DL (9-23); CALCIUM LEVEL 9.1 MG/DL (8.3-10.6); CARBON DIOXIDE LEVEL 35 MMOL/L (20-31); CHLORIDE LEVEL 98 MMOL/L (98-107); CHOLESTEROL LEVEL 170 MG/DL (<200); CHOLESTEROL RISK RATIO 2.63 (<5); CREATININE FOR GFR 0.58 MG/DL (0.55-1.30); GLOMERULAR FILTRATION RATE > 60.0 (>45); GLUCOSE, FASTING 98 MG/DL (74-106); HDL CHOLESTEROL 64.6 MG/DL (>40); NON-HDL-C 105.4 MG/DL; SODIUM LEVEL 137 MMOL/L (136-145); TOTAL PROTEIN 6.7 G/DL (5.7-8.2); TRIGLYCERIDES LEVEL 77 MG/DL (<150)
[2024-01-01 14:15] LABS: THYROID STIMULATING HORMONE 1.647 uIU/ML (0.55-4.78)
[2024-01-01 14:16] LABS: TOTAL 25(OH) VITAMIN D 60.6 NG/ML (20.0-100.0)
== END ==
LOC: M SFHCADAM 10:20
PROVIDERS: ATTEND Physician Assistant Medical
DX: I10 Essential (primary) hypertension (principal); F17.210 Nicotine dependence, cigarettes, uncomplicated; E55.9 Vitamin D deficiency, unspecified; M81.0 Age-related osteoporosis without current pathological fracture

== ENCOUNTER → 2024-01-08 | Outpatient (CLI) | payer MEDICARE, MEDICAID ==
[2024-01-08 10:18] LABS: BLOOD UREA NITROGEN 20 MG/DL (9-23); CALCIUM LEVEL 9.5 MG/DL (8.3-10.6); CARBON DIOXIDE LEVEL 33 MMOL/L (20-31); CHLORIDE LEVEL 101 MMOL/L (98-107); CREATININE FOR GFR 0.58 MG/DL (0.55-1.30); GLOMERULAR FILTRATION RATE > 60.0 (>45); GLUCOSE, FASTING 98 MG/DL (74-106); SODIUM LEVEL 140 MMOL/L (136-145)
== END ==
LOC: M PLALAB 07:36
PROVIDERS: ATTEND Physician Assistant Medical
DX: E87.6 Hypokalemia (principal)

== ENCOUNTER → 2024-02-27 | Outpatient (CLI) | payer MEDICARE, MEDICAID | LOC: M ADAMS 13:10 | PROVIDERS: ATTEND Physician Assistant | DX: M19.071 Primary osteoarthritis, right ankle and foot (principal); M19.072 Primary osteoarthritis, left ankle and foot ==

== ENCOUNTER → 2024-02-27 | Outpatient (REF) | payer MEDICARE, MEDICAID ==
[2024-02-27 18:38] LABS: BLOOD UREA NITROGEN 15 MG/DL (9-23); CALCIUM LEVEL 10.1 MG/DL (8.3-10.6); CARBON DIOXIDE LEVEL 32 MMOL/L (20-31); CHLORIDE LEVEL 102 MMOL/L (98-107); CREATININE FOR GFR 0.65 MG/DL (0.55-1.30); GLOMERULAR FILTRATION RATE > 60.0 (>45); GLUCOSE, FASTING 102 MG/DL (74-106); MAGNESIUM LEVEL 1.7 MG/DL (1.8-2.4); SODIUM LEVEL 139 MMOL/L (136-145)
== END ==
LOC: M SFHCADAM 11:34
PROVIDERS: ATTEND Physician Assistant
DX: G47.62 Sleep related leg cramps (principal)

== ENCOUNTER → 2024-03-31 | Outpatient (CLI) | payer MEDICARE, MEDICAID | LOC: M RAD 06:45 | PROVIDERS: ATTEND Physician Assistant Medical | DX: Z12.2 Encounter for screening for malignant neoplasm of respiratory organs (principal); F17.210 Nicotine dependence, cigarettes, uncomplicated ==

== ENCOUNTER → 2025-01-05 | Outpatient (REF) | payer MEDICARE, MEDICAID ==
[2025-01-05 13:48] LABS: BASO # 0.1 10^3/uL (0.0-0.2); BASO % 0.6 % (0.0-1.0); EOS % 0.5 % (0.0-3.0); HEMATOCRIT 41.6 % (36.0-47.0); HEMOGLOBIN 13.7 g/dl (12.0-15.5); LYMPH # 1.2 10^3/uL (1.5-5.0); MEAN CORPUSCULAR HEMOGLOBIN 33.7 pg (27.0-33.0); MEAN CORPUSCULAR HGB CONC 32.9 g/dl (32.0-36.5); MEAN CORPUSCULAR VOLUME 102.2 fl (80.0-96.0); MONO # 0.5 10^3/uL (0.0-0.8); MONO % 6.3 % (2.0-8.0); NEUTROPHILS # 6.8 10^3/uL (1.5-8.5); NEUTROPHILS % 78.1 % (36.0-66.0); PLATELET COUNT, AUTOMATED 167 10^3/uL (150-450); RED BLOOD COUNT 4.07 10^6/uL (4.00-5.40); WHITE BLOOD COUNT 8.6 10^3/uL (4.0-10.0)
[2025-01-05 14:27] LABS: ALBUMIN 4.3 G/DL (3.2-5.2); ALKALINE PHOSPHATASE 40 U/L (35-104); ALT/SGPT 11 U/L (7.0-40); AST/SGOT 14 U/L (<34); BILIRUBIN,TOTAL 0.7 MG/DL (0.3-1.2); BLOOD UREA NITROGEN 19 MG/DL (9-23); CALCIUM LEVEL 9.8 MG/DL (8.3-10.6); CARBON DIOXIDE LEVEL 32 MMOL/L (20-31); CHLORIDE LEVEL 97 MMOL/L (98-107); CHOLESTEROL LEVEL 196 MG/DL (<200); CHOLESTEROL RISK RATIO 2.59 (<5); CREATININE FOR GFR 0.61 MG/DL (0.55-1.30); GLOMERULAR FILTRATION RATE > 60.0 (>45); GLUCOSE, FASTING 117 MG/DL (74-106); HDL CHOLESTEROL 75.6 MG/DL (>40); MAGNESIUM LEVEL 2.1 MG/DL (1.8-2.4); NON-HDL-C 120.4 MG/DL; POTASSIUM SERUM 3.7 MMOL/L (3.5-5.1); SODIUM LEVEL 140 MMOL/L (136-145); TOTAL PROTEIN 7.3 G/DL (5.7-8.2); TRIGLYCERIDES LEVEL 97 MG/DL (<150)
[2025-01-05 14:29] LABS: THYROID STIMULATING HORMONE 1.849 uIU/ML (0.55-4.78); TOTAL 25(OH) VITAMIN D 66.6 NG/ML (20.0-100.0)
== END ==
LOC: M SFHCADAM 09:14
PROVIDERS: ATTEND Physician Assistant Medical
DX: E55.9 Vitamin D deficiency, unspecified (principal); I10 Essential (primary) hypertension; M81.0 Age-related osteoporosis without current pathological fracture; E83.42 Hypomagnesemia

== ENCOUNTER → 2025-01-28 | Outpatient (CLI) | payer MEDICARE, MEDICAID | LOC: M WHC 13:00 | PROVIDERS: ATTEND Physician Assistant Medical | DX: M81.0 Age-related osteoporosis without current pathological fracture (principal); Z12.31 Encounter for screening mammogram for malignant neoplasm of breast; R92.323 Mammographic fibroglandular density, bilateral breasts ==

== ENCOUNTER → 2025-05-09 | Outpatient (CLI) | payer MEDICARE, MEDICAID | LOC: M RAD 15:13 | PROVIDERS: ATTEND Physician Assistant Medical | DX: Z12.2 Encounter for screening for malignant neoplasm of respiratory organs (principal); F17.210 Nicotine dependence, cigarettes, uncomplicated; J98.11 Atelectasis; J47.9 Bronchiectasis, uncomplicated; R91.8 Other nonspecific abnormal finding of lung field; J43.2 Centrilobular emphysema; I70.0 Atherosclerosis of aorta; I25.10 Atherosclerotic heart disease of native coronary artery without angina pectoris ==

== ENCOUNTER → 2025-07-04 | Outpatient (REF) | payer MEDICARE, MEDICAID ==
[~2025-07-04] MED LIST changes: -IBUP-1022 PO; +IBUP600T42 PO
[2025-07-04 14:06] LABS: BASO # 0.0 10^3/uL (0.0-0.2); BASO % 0.5 % (0.0-1.0); EOS # 0.0 10^3/uL (0.0-0.5); EOS % 0.5 % (0.0-3.0); LYMPH # 1.2 10^3/uL (1.5-5.0); LYMPH % 13.6 % (24.0-44.0); MONO # 0.6 10^3/uL (0.0-0.8); MONO % 7.3 % (2.0-8.0); NEUTROPHILS # 6.7 10^3/uL (1.5-8.5); NEUTROPHILS % 77.9 % (36.0-66.0); PLATELET COUNT, AUTOMATED 184 10^3/uL (150-450)
[2025-07-04 14:17] LABS: ESTIMATED AVERAGE GLUCOSE 114.0 MG/DL (60-110)
[2025-07-04 14:43] LABS: ALT/SGPT 15 U/L (7.0-40); AST/SGOT 19 U/L (<34); CALCIUM LEVEL 9.7 MG/DL (8.3-10.6); CARBON DIOXIDE LEVEL 33 MMOL/L (20-31); CHLORIDE LEVEL 98 MMOL/L (98-107); CHOLESTEROL LEVEL 207 MG/DL (<200); CHOLESTEROL RISK RATIO 2.76 (<5); CREATININE FOR GFR 0.55 MG/DL (0.55-1.30); GLOMERULAR FILTRATION RATE > 90.0 (>45); LDL CHOLESTEROL 117.9 MG/DL (<100); MAGNESIUM LEVEL 2.1 MG/DL (1.8-2.4); NON-HDL-C 132.1 MG/DL; POTASSIUM SERUM 3.8 MMOL/L (3.5-5.1); SODIUM LEVEL 137 MMOL/L (136-145); TOTAL 25(OH) VITAMIN D 72.4 NG/ML (20.0-100.0); TRIGLYCERIDES LEVEL 71 MG/DL (<150)
[2025-07-04 14:44] LABS: FREE T4 1.57 NG/DL (0.89-1.76)
== END ==
LOC: M SFHCADAM 09:50
PROVIDERS: ATTEND Physician Assistant Medical
DX: I10 Essential (primary) hypertension (principal); F17.210 Nicotine dependence, cigarettes, uncomplicated; E55.9 Vitamin D deficiency, unspecified; J43.1 Panlobular emphysema; E83.42 Hypomagnesemia

== ENCOUNTER → 2025-07-12 | Outpatient (CLI) | payer MEDICARE, MEDICAID | LOC: M PLARAD 14:19 | PROVIDERS: ATTEND Internal Medicine Pulmonary Disease | DX: R91.8 Other nonspecific abnormal finding of lung field (principal) | CPT/HCPCS: 78815; A9552 ==